=== PATIENT | female | born 1955 | race Caucasian/White ===

== ENCOUNTER 2017-11-28 09:40 | Outpatient (CLI) | payer OTHER | END 2017-11-28 09:41 | disposition home or self-care (01) | LOC: BICMAMMO 09:40 | PROVIDERS: ATTEND Internal Medicine Rheumatology | DX: M81.0 Age-related osteoporosis without current pathological fracture (principal) | CPT/HCPCS: 77080 ==

== ENCOUNTER 2021-04-20 13:57 | Outpatient (CLI) | payer MEDICARE | END 2021-04-20 13:58 | disposition home or self-care (01) | LOC: BICMAMMO 13:57 | PROVIDERS: ATTEND Internal Medicine Rheumatology | DX: M81.8 Other osteoporosis without current pathological fracture (principal) | CPT/HCPCS: 77080 ==

== ENCOUNTER → 2022-09-13 | Day surgery (SDC) | payer MEDICARE, OTHER ==
[~2022-09-13] MED LIST: Acetaminophen 500 MG TAB ONE; Acetaminophen 500 MG TAB PO PRN; INFLIXIMAB DYYB IVPB SCH; SODIUM CHLORIDE 0.9% IVPB SCH; diphenhydrAMINE 25 MG CAP ONE; diphenhydrAMINE 25 MG CAP PO SCH
[2022-09-13 10:55] VITALS: BP 125/57; TEMP 98.3
== END | disposition home or self-care (01) ==
LOC: ONC/OP 09:25
PROVIDERS: ATTEND Internal Medicine Rheumatology
DX: M05.79 Rheumatoid arthritis with rheumatoid factor of multiple sites without organ or systems involvement (principal)
CPT/HCPCS: 96413; 96415; Q5103; J7050

== ENCOUNTER 2022-12-06 09:04 | Day surgery (SDC) | payer MEDICARE, OTHER ==
[~2022-12-06 09:04] MED LIST changes: -Acetaminophen 500 MG TAB ONE; -diphenhydrAMINE 25 MG CAP ONE; +diphenhydrAMINE 50 MG/ML VIAL IVP SCH
[2022-12-06] MEDS ORDERED: SODIUM CHLORIDE 0.9% IVPB SCH (09:15)
[2022-12-06] MEDS ORDERED: INFLIXIMAB DYYB IVPB SCH (09:15)
[2022-12-06] MEDS ORDERED: Acetaminophen 500 MG TAB ONE (09:40)
[2022-12-06] MEDS ORDERED: diphenhydrAMINE 25 MG CAP ONE (09:40)
[2022-12-06 10:04] VITALS: BP 119/56; TEMP 98
[2022-12-06 10:20] LABS: #Basophils 0.1 thou/uL (0.0-0.2); #Eosinphils 0.4 thou/uL (0.0-0.7); #Neutrophils 3.1 thou/uL (1.40-6.50); %Basophils 0.9 % (0.0-1.0); %Eosinophils 6.9 % (0.0-10.0); %Lymphocytes 21.3 % (21.0-51.0); %Monocytes 16.8 % (0.0-10.0); %Neutrophils 53.9 % (42.0-75.0); Hematocrit 37.3 % (36.0-47.0); Hemoglobin 12.2 g/dL (12.0-16.0); Mean Corpuscular HGB CONC 32.7 g/dL (32.0-36.0); Mean Corpuscular Hemoglobin 31.2 pg (27.0-31.0); Mean Corpuscular Volume 95.4 fl (78.0-98.0); Mean Platelet Volume 11.8 fL (7.4-10.4); Platelet Count 333 10x3/uL (130-400); RBC Distribution Width 15.4 % (11.5-14.5); Red Blood Cell (RBC) Count 3.91 mill/uL (4.20-5.40); White Blood Cell (WBC) Count 5.7 10x3/uL (4.8-10.8)
== END 2022-12-06 12:30 | disposition home or self-care (01) ==
LOC: ONC/OP 09:04
PROVIDERS: ATTEND Internal Medicine Rheumatology
DX: M05.79 Rheumatoid arthritis with rheumatoid factor of multiple sites without organ or systems involvement (principal)
CPT/HCPCS: 85025; 85652; 96413; 96415; Q5103; J7050

== ENCOUNTER 2023-01-17 08:39 | Day surgery (SDC) | payer MEDICARE, OTHER ==
[~2023-01-17 08:39] MED LIST changes: +INFLIXIMAB DYYB IV SCH; -INFLIXIMAB DYYB IVPB SCH; +SODIUM CHLORIDE 0.9% IV SCH; -SODIUM CHLORIDE 0.9% IVPB SCH; -diphenhydrAMINE 50 MG/ML VIAL IVP SCH
[2023-01-17] MEDS ORDERED: Acetaminophen 500 MG TAB ONE (09:37)
[2023-01-17] MEDS ORDERED: diphenhydrAMINE 25 MG CAP ONE (09:37)
[2023-01-17 12:54] VITALS: BP 119/58; TEMP 98.4
== END 2023-01-17 12:00 | disposition home or self-care (01) ==
LOC: ONC/OP 08:39
PROVIDERS: ATTEND Internal Medicine Rheumatology
DX: M05.79 Rheumatoid arthritis with rheumatoid factor of multiple sites without organ or systems involvement (principal)
CPT/HCPCS: 96413; 96415; Q5103; J7050

== ENCOUNTER 2023-04-21 09:10 | Day surgery (SDC) | payer MEDICARE, OTHER ==
[~2023-04-21 09:10] MED LIST changes: +ADMIXTURE FEE IV SCH; -SODIUM CHLORIDE 0.9% IV SCH; +SODIUM CHLORIDE IV SCH; +diphenhydrAMINE 50 MG/ML VIAL IVP PRN
[2023-04-21] MEDS ORDERED: SODIUM CHLORIDE IV SCH (09:30)
[2023-04-21] MEDS ORDERED: INFLIXIMAB DYYB IV SCH (09:30)
[2023-04-21] MEDS ORDERED: ADMIXTURE FEE IV SCH (09:30)
[2023-04-21 10:00] LABS: #Basophils 0.1 thou/uL (0.0-0.2); #Monocytes 0.9 thou/uL (0.11-0.59); %Basophils 0.9 % (0.0-1.0); %Eosinophils 16.2 % (0.0-10.0); %Lymphocytes 21.5 % (21.0-51.0); %Monocytes 14.2 % (0.0-10.0); Hematocrit 34.4 % (36.0-47.0); Hemoglobin 10.8 g/dL (12.0-16.0); Mean Corpuscular HGB CONC 31.4 g/dL (32.0-36.0); Mean Corpuscular Hemoglobin 31.2 pg (27.0-31.0); Mean Corpuscular Volume 99.4 fl (78.0-98.0); Mean Platelet Volume 9.7 fL (7.4-10.4); Platelet Count 323 10x3/uL (130-400); RBC Distribution Width 14.4 % (11.5-14.5); Red Blood Cell (RBC) Count 3.46 mill/uL (4.20-5.40); White Blood Cell (WBC) Count 6.3 10x3/uL (4.8-10.8)
[2023-04-21] MEDS ORDERED: diphenhydrAMINE 25 MG CAP ONE (10:04)
[2023-04-21] MEDS ORDERED: Acetaminophen 500 MG TAB ONE (10:04)
[2023-04-21 11:07] LABS: ALT (SGPT) 16 U/L (8-55); AST (SGOT) 28 U/L (5-34); Albumin 3.5 g/dL (3.4-4.8); Alkaline Phosphatase 62 U/L (40-110); Anion Gap 14 mmol/L (10-20); BUN (Urea Nitrogen) 14 mg/dL (9.8-20.1); Bilirubin, Total 0.4 mg/dL (0.2-1.2); CRP (Inflammatory) Less than 0.50 mg/dL (= or < 0.5); Calc. Creatinine Clearance 57 mL/min (70-130); Carbon Dioxide 26 mmol/L (23-31); Chloride 103 mmol/L (98-107); Estimated GFR 63; Glucose 93 mg/dL (80-115); Potassium 4.8 mmol/L (3.5-5.1); Protein, Total 7.5 g/dL (5.8-8.1); Sodium 138 mmol/L (136-145)
[2023-04-21 11:13] VITALS: BP 126/58; TEMP 97.8
[2023-04-21] MEDS ORDERED: FLU VACC QS2023(65UP)/MF59C/PF 60 MCG/0.5 ML SYRINGE IM ONE (11:15)
== END 2023-04-21 12:48 | disposition home or self-care (01) ==
LOC: ONC/OP 09:10
PROVIDERS: ATTEND Internal Medicine Rheumatology
DX: M05.79 Rheumatoid arthritis with rheumatoid factor of multiple sites without organ or systems involvement (principal)
CPT/HCPCS: 36591; 80053; 85025; 86140; 90694; 96413; 96415; G0008; Q5103; 36415; 90471; J7050

== ENCOUNTER 2023-06-02 09:25 | Day surgery (SDC) | payer MEDICARE, OTHER ==
[~2023-06-02 09:25] MED LIST changes: +Acetaminophen 500 MG TAB PO SCH
[2023-06-02] MEDS ORDERED: diphenhydrAMINE 25 MG CAP ONE (10:41)
[2023-06-02] MEDS ORDERED: Acetaminophen 500 MG TAB ONE (10:41)
[2023-06-02 11:58] VITALS: BP 114/52; TEMP 98
== END 2023-06-02 12:51 | disposition home or self-care (01) ==
LOC: ONC/OP 09:25
PROVIDERS: ATTEND Internal Medicine Rheumatology
DX: M05.79 Rheumatoid arthritis with rheumatoid factor of multiple sites without organ or systems involvement (principal)
CPT/HCPCS: 96413; 96415; Q5103; J7050

== ENCOUNTER 2023-07-14 09:00 | Day surgery (SDC) | payer MEDICARE, OTHER ==
[~2023-07-14 09:00] MED LIST changes: -ADMIXTURE FEE IV SCH; -Acetaminophen 500 MG TAB PO PRN; -Acetaminophen 500 MG TAB PO SCH; -INFLIXIMAB DYYB IV SCH; -SODIUM CHLORIDE IV SCH; -diphenhydrAMINE 25 MG CAP PO SCH
[2023-07-14 09:48] VITALS: BP 125/60; TEMP 97.6
[2023-07-14] MEDS ORDERED: Acetaminophen 500 MG TAB ONE (10:01)
[2023-07-14] MEDS ORDERED: diphenhydrAMINE 25 MG CAP ONE (10:01)
[2023-07-14] MEDS: Acetaminophen 500 MG TAB PO PRN (10:02)
[2023-07-14] MEDS: diphenhydrAMINE 25 MG CAP PO SCH (10:03)
[2023-07-14] MEDS: SODIUM CHLORIDE IV SCH (10:12)
[2023-07-14] MEDS: ADMIXTURE FEE IV SCH (10:12)
[2023-07-14] MEDS: INFLIXIMAB DYYB IV SCH (10:12)
== END 2023-07-14 12:38 | disposition home or self-care (01) ==
LOC: ONC/OP 09:00
PROVIDERS: ATTEND Internal Medicine Rheumatology
DX: M05.79 Rheumatoid arthritis with rheumatoid factor of multiple sites without organ or systems involvement (principal)
CPT/HCPCS: 96413; 96415; Q5103; J7050

== ENCOUNTER 2023-10-06 13:01 | Day surgery (SDC) | payer MEDICARE, OTHER ==
[~2023-10-06 13:01] MED LIST changes: +INFLIXIMAB DYYB IVPB SCH; +SODIUM CHLORIDE 0.9% IVPB SCH
[2023-10-06] MEDS ORDERED: Acetaminophen 500 MG TAB ONE (14:16)
[2023-10-06] MEDS ORDERED: diphenhydrAMINE 25 MG CAP ONE (14:16)
[2023-10-06] MEDS: Acetaminophen 500 MG TAB PO PRN (14:20)
[2023-10-06] MEDS: diphenhydrAMINE 25 MG CAP PO SCH (14:20)
[2023-10-06 14:28] VITALS: BP 112/53; TEMP 97.6
[2023-10-06] MEDS: SODIUM CHLORIDE 0.9% IVPB SCH (14:28)
[2023-10-06] MEDS: INFLIXIMAB DYYB IVPB SCH (14:28)
== END 2023-10-06 15:16 | disposition home or self-care (01) ==
LOC: ONC/OP 13:01
PROVIDERS: ATTEND Internal Medicine Rheumatology
DX: M05.79 Rheumatoid arthritis with rheumatoid factor of multiple sites without organ or systems involvement (principal)
CPT/HCPCS: 96413; 96415; J7050; Q5103

== ENCOUNTER 2023-11-17 08:31 | Day surgery (SDC) | payer MEDICARE, OTHER ==
[~2023-11-17 08:31] MED LIST changes: +diphenhydrAMINE 25 MG CAP PO SCH
[2023-11-17] MEDS ORDERED: Acetaminophen 500 MG TAB ONE (09:23)
[2023-11-17] MEDS: Acetaminophen 500 MG TAB PO PRN (09:24)
[2023-11-17] MEDS: INFLIXIMAB DYYB IVPB SCH (09:57)
[2023-11-17] MEDS: SODIUM CHLORIDE 0.9% IVPB SCH (09:57)
[2023-11-17 13:35] VITALS: BP 113/56; TEMP 98
== END 2023-11-17 12:25 | disposition home or self-care (01) ==
LOC: ONC/OP 08:31
PROVIDERS: ATTEND Internal Medicine Rheumatology
DX: M05.79 Rheumatoid arthritis with rheumatoid factor of multiple sites without organ or systems involvement (principal)
CPT/HCPCS: 96413; 96415; J7050; Q5103

== ENCOUNTER 2024-02-09 08:55 | Day surgery (SDC) | payer MEDICARE, OTHER ==
[~2024-02-09 08:55] MED LIST changes: +Acetaminophen 500 MG TAB PO PRN; -diphenhydrAMINE 50 MG/ML VIAL IVP PRN
== END 2024-02-09 09:24 | disposition home or self-care (01) ==
LOC: ONC/OP 08:55
PROVIDERS: ATTEND Internal Medicine Rheumatology
DX: M05.79 Rheumatoid arthritis with rheumatoid factor of multiple sites without organ or systems involvement (principal)

== ENCOUNTER 2024-02-12 08:52 | Day surgery (SDC) | payer MEDICARE, OTHER ==
[~2024-02-12 08:52] MED LIST changes: -Acetaminophen 500 MG TAB PO PRN; -diphenhydrAMINE 25 MG CAP PO SCH; +diphenhydrAMINE 50 MG/ML VIAL IVP PRN
[2024-02-12] MEDS ORDERED: diphenhydrAMINE 25 MG CAP ONE (10:31)
[2024-02-12] MEDS ORDERED: Acetaminophen 500 MG TAB ONE (10:31)
[2024-02-12] MEDS: Acetaminophen 500 MG TAB PO PRN (10:32)
[2024-02-12] MEDS: diphenhydrAMINE 25 MG CAP PO SCH (10:33)
[2024-02-12 10:40] VITALS: BP 107/54; TEMP 97.6
[2024-02-12] MEDS: INFLIXIMAB-DYYB 500 MG in Sodium Chloride 0.9% 250 ML 200 ML IVPB SCH (10:43)
== END 2024-02-12 13:08 | disposition home or self-care (01) ==
LOC: ONC/OP 08:52
PROVIDERS: ATTEND Internal Medicine Rheumatology
DX: M05.79 Rheumatoid arthritis with rheumatoid factor of multiple sites without organ or systems involvement (principal)
CPT/HCPCS: 96413; 96415; J7050; Q5103

== ENCOUNTER 2024-03-25 08:44 | Day surgery (SDC) | payer MEDICARE, OTHER ==
[~2024-03-25 08:44] MED LIST changes: +Acetaminophen 500 MG TAB PO PRN; -INFLIXIMAB DYYB IVPB SCH; -SODIUM CHLORIDE 0.9% IVPB SCH
[2024-03-25] MEDS ORDERED: Acetaminophen 500 MG TAB ONE (09:34)
[2024-03-25] MEDS ORDERED: diphenhydrAMINE 25 MG CAP ONE (09:34)
[2024-03-25] MEDS: Acetaminophen 500 MG TAB PO PRN (09:35)
[2024-03-25] MEDS: diphenhydrAMINE 25 MG CAP PO SCH (09:36)
[2024-03-25 09:43] VITALS: BP 95/52; TEMP 97.8
[2024-03-25] MEDS: INFLIXIMAB-DYYB 500 MG in Sodium Chloride 0.9% 250 ML 200 ML IVPB SCH (09:49)
== END 2024-03-25 12:25 | disposition home or self-care (01) ==
LOC: ONC/OP 08:44
PROVIDERS: ATTEND Internal Medicine Rheumatology
DX: M05.79 Rheumatoid arthritis with rheumatoid factor of multiple sites without organ or systems involvement (principal)
CPT/HCPCS: 96413; 96415; J7050; Q5103

== ENCOUNTER 2024-05-10 08:51 | Day surgery (SDC) | payer MEDICARE, OTHER ==
[2024-05-10 09:33] LABS: #Basophils 0.06 10x3/uL (0.0-0.2); %Eosinophils 5.7 % (0.0-10.0); %Lymphocytes 25.9 % (21.0-51.0); %Monocytes 16.8 % (0.0-10.0); %Neutrophils 50.3 % (42.0-75.0); Hematocrit 36.2 % (36.0-47.0); Hemoglobin 11.7 g/dL (12.0-16.0); Mean Corpuscular HGB CONC 32.3 g/dL (32.0-36.0); Mean Corpuscular Hemoglobin 30.1 pg (27.0-31.0); Mean Corpuscular Volume 93.1 fL (78.0-98.0); Mean Platelet Volume 9.5 fL (7.4-10.4); Platelet Count 260 10x3/uL (130-400); RBC Distribution Width 13.8 % (11.5-14.5); Red Blood Cell (RBC) Count 3.89 mill/uL (4.20-5.40)
[2024-05-10 09:46] LABS: ALT (SGPT) 14 U/L (8-55); AST (SGOT) 21 U/L (5-34); Albumin 3.2 g/dL (3.4-4.8); Alkaline Phosphatase 59 U/L (40-110); Anion Gap 13 mmol/L (10-20); BUN (Urea Nitrogen) 12 mg/dL (9.8-20.1); Bilirubin, Total 0.3 mg/dL (0.2-1.2); CRP,High Sensitivity (Inhouse) 0.52 mg/dL (< or = 0.5); Calc. Creatinine Clearance 0 mL/min (70-130); Calcium 8.7 mg/dL (7.8-10.44); Carbon Dioxide 23 mmol/L (23-31); Chloride 104 mmol/L (98-107); Estimated GFR 68; Globulin 3.9 g/dL (2.4-3.5); Glucose 141 mg/dL (80-115); Potassium 3.6 mmol/L (3.5-5.1); Protein, Total 7.1 g/dL (5.8-8.1); Sodium 136 mmol/L (136-145)
[2024-05-10] MEDS: Sodium Chloride 0.9% 1,000 ML IV SCH (09:48)
[2024-05-10 09:58] VITALS: BP 103/60; TEMP 98
[2024-05-10] MEDS ORDERED: Acetaminophen 500 MG TAB ONE (09:58)
[2024-05-10] MEDS ORDERED: diphenhydrAMINE 25 MG CAP ONE (09:59)
[2024-05-10] MEDS: Acetaminophen 500 MG TAB PO SCH (10:01)
[2024-05-10] MEDS: diphenhydrAMINE 25 MG CAP PO SCH (10:12)
[2024-05-10] MEDS: INFLIXIMAB-DYYB 700 MG in Sodium Chloride 0.9% 250 ML 180 ML IVPB SCH (10:17)
== END 2024-05-10 12:52 | disposition home or self-care (01) ==
LOC: ONC/OP 08:51
PROVIDERS: ATTEND Internal Medicine Rheumatology
DX: M05.79 Rheumatoid arthritis with rheumatoid factor of multiple sites without organ or systems involvement (principal)
CPT/HCPCS: 80053; 85025; 86141; 96413; 96415; J7050; Q5103; 36415

== ENCOUNTER 2024-12-26 08:47 | Day surgery (SDC) | payer MEDICARE, OTHER ==
[2024-12-26 09:25] VITALS: BP 111/59; TEMP 97.7
[2024-12-26] MEDS ORDERED: Acetaminophen 500 MG TAB ONE (09:46)
[2024-12-26] MEDS ORDERED: diphenhydrAMINE 25 MG CAP ONE (09:46)
[2024-12-26] MEDS: Acetaminophen 500 MG TAB PO SCH (09:46)
[2024-12-26] MEDS: diphenhydrAMINE 25 MG CAP PO SCH (09:46)
[2024-12-26] MEDS: STERILE WATER IV SCH (10:43)
[2024-12-26] MEDS: SODIUM CHLORIDE IV SCH (10:43)
[2024-12-26] MEDS: INFLIXIMAB DYYB IV SCH (10:43)
== END 2024-12-26 14:09 | disposition home or self-care (01) ==
LOC: ONC/OP 08:47
PROVIDERS: ATTEND Internal Medicine Rheumatology
DX: M05.79 Rheumatoid arthritis with rheumatoid factor of multiple sites without organ or systems involvement (principal)
CPT/HCPCS: 96413; 96415; J7050; Q5103

== ENCOUNTER 2025-03-21 08:48 | Day surgery (SDC) | payer MEDICARE, OTHER ==
[2025-03-21 09:42] VITALS: BP 105/56; TEMP 97.5
[2025-03-21] MEDS ORDERED: Acetaminophen 500 MG TAB ONE (09:49)
[2025-03-21] MEDS ORDERED: diphenhydrAMINE 25 MG CAP ONE (09:49)
[2025-03-21] MEDS: diphenhydrAMINE 25 MG CAP PO SCH (10:03)
[2025-03-21] MEDS: Acetaminophen 500 MG TAB PO SCH (10:03)
[2025-03-21] MEDS: SODIUM CHLORIDE IVPB SCH (10:36)
[2025-03-21] MEDS: INFLIXIMAB DYYB IVPB SCH (10:36)
[2025-03-21] MEDS: STERILE WATER IVPB SCH (10:36)
== END 2025-03-21 13:08 | disposition home or self-care (01) ==
LOC: ONC/OP 08:48
PROVIDERS: ATTEND Internal Medicine Rheumatology
DX: M06.9 Rheumatoid arthritis, unspecified (principal)
CPT/HCPCS: 96413; 96415; J7050; Q5103